=== PATIENT | female | born 1960 | race Caucasian/White ===

== ENCOUNTER 2018-10-05 10:06 | Emergency (ER) | payer OTHER ==
[~2018-10-05] VITALS: Ht 160 cm; Wt 60.8 kg
[2018-10-05 10:06] VITALS: BP_SYST 144
--- NOTE | 2018-10-05 10:06 | NUR ---
BROUGHT BACK TO BED #6 AND TRIAGED. REPORT GIVEN TO DEREK
--- NOTE | 2018-10-05 10:20 | NUR ---
pt reports walking into a pot hole and twisted her left ankle. She has sustained a prior fracture on the area before. A bump is visible on the left foot. PT reports that the site is tender to the touch. No other c/o at the moment.
[2018-10-05] MEDS ORDERED: IBUPROFEN 800 MG TABLET PO ONE (10:30)
--- NOTE | 2018-10-05 10:30 | NUR ---
ER at bedside examining patient.
--- NOTE | 2018-10-05 10:45 | NUR ---
x-ray at the bedside.
--- NOTE | 2018-10-05 12:15 | NUR ---
left foot splinted. +2 pedal pulse. Cap refil < 3. Crutches provided to the pt.
[2018-10-05 12:32] VITALS: BP_SYST 144
--- NOTE | 2018-10-05 12:35 | NUR ---
Patient given written and verbal discharge instructions and verbalizes understanding. ER MD discussed with patient the results and treatment provided. Patient in stable condition. ID arm band removed. IV catheter removed intact and dressing applied, no active bleeding. Rx of Motrin given. Patient educated on pain management and to follow up with PMD. Pain Scale 3/10. Opportunity for questions provided and answered. Medication side effect fact sheet provided.
== END 2018-10-05 12:32 | disposition home or self-care (01) ==
LOC: SED 10:06
DX: S92.352A Displaced fracture of fifth metatarsal bone, left foot, initial encounter for closed fracture (principal); W17.2XXA Fall into hole, initial encounter; Y93.89 Activity, other specified; Y92.89 Other specified places as the place of occurrence of the external cause; Y99.8 Other external cause status
CPT/HCPCS: 99283

== ENCOUNTER 2019-12-18 09:40 | Emergency (ER) | payer OTHER ==
[~2019-12-18] VITALS: Ht 160 cm; Wt 65.8 kg
[2019-12-18 09:40] VITALS: BP_SYST 158
[2019-12-18] MEDS ORDERED: KETOROLAC TROMETHAMINE 60 MG/2 ML VIAL IM ONE (10:15)
[2019-12-18 11:43] VITALS: BP_SYST 155
== END 2019-12-18 11:40 | disposition home or self-care (01) ==
LOC: SED 09:40
DX: S39.012A Strain of muscle, fascia and tendon of lower back, initial encounter (principal); S16.1XXA Strain of muscle, fascia and tendon at neck level, initial encounter; I10 Essential (primary) hypertension; V49.9XXA Car occupant (driver) (passenger) injured in unspecified traffic accident, initial encounter; Y93.89 Activity, other specified; Y92.413 State road as the place of occurrence of the external cause; Y99.8 Other external cause status
CPT/HCPCS: 71045; 72040; 72100; 96372; 99284; J1885

== ENCOUNTER 2020-04-29 18:31 | Emergency (ER) | payer OTHER ==
[~2020-04-29] VITALS: Ht 160 cm; Wt 61.2 kg
[2020-04-29 18:40] VITALS: BP_SYST 184
--- NOTE | 2020-04-29 18:40 | NUR ---
Patient to ER bed 07 to gown for evaluation. Side rails up.
--- NOTE | 2020-04-29 18:43 | NUR ---
Dr Vinson evaluating patient at bedside
--- NOTE | 2020-04-29 18:45 | NUR ---
Pt walked in to ER with c/o abdominal pain x3 days, denies n/v or fever at this time. V/S stable, no acute distress noted.
[2020-04-29 18:51] LABS: BASOPHILS % (AUTO) 0.5 % (0.0-2.0); EOSINOPHILS # (AUTO) 0.1 K/uL (0.0-0.4); EOSINOPHILS % (AUTO) 1.8 % (0.0-4.0); HEMOGLOBIN 14.1 g/dL (12.0-16.0); LYMPHOCYTES # (AUTO) 1.9 K/uL (1.0-5.5); LYMPHOCYTES % (AUTO) 31.4 % (20.5-51.5); MEAN CORPUSCULAR HEMOGLOBIN 31 pg (27-31); MEAN CORPUSCULAR HGB CONC 34 % (32-36); MEAN CORPUSCULAR VOLUME 91 fL (79.0-98.0); MONOCYTES # (AUTO) 0.6 K/uL (0.0-1.0); MONOCYTES % (AUTO) 10.2 % (1.7-9.3); NEUTROPHILS # (AUTO) 3.3 K/uL (1.8-7.7); NEUTROPHILS % (AUTO) 56.1 % (40.0-70.0); PLATELET COUNT (AUTO) 156 K/uL (130-430); RED CELL DISTRIBUTION WIDTH 12.8 % (9.0-15.0)
[2020-04-29] MEDS ORDERED: NACL 0.9% 1,000 ML IV ONE (19:00)
[2020-04-29] MEDS ORDERED: ONDANSETRON HCL 4 MG/2 ML VIAL IVP ONE (19:00)
[2020-04-29] MEDS ORDERED: MORPHINE 2 MG/ML INJ. SYRINGE IVP ONE (19:00)
--- NOTE | 2020-04-29 19:00 | NUR ---
# 20 gauge angiocath placed to RAC. Use of asceptic technique. Opsite placed over site. Blood return noted. Flushed with 10 cc of normal saline. No evidence of infiltration noted. Patient tolerated well.
[2020-04-29 19:05] LABS: ANION GAP 9 (5-15); CALCIUM 9.5 mg/dL (8.4-11.0); CHLORIDE 105 mmol/L (98-107); CREATININE 0.94 mg/dL (0.55-1.30); GLUCOSE 91 mg/dL (70-99); POTASSIUM 3.9 mmol/L (3.5-5.1); SODIUM SERUM 142 mmol/L (136-145); UREA NITROGEN, BLOOD 22 mg/dL (8-21)
[2020-04-29 19:06] LABS: GFR AFRICAN AMERICAN 78 mL/min (>90)
[2020-04-29 19:10] LABS: BILIRUBIN,URINE NEGATIVE (NEGATIVE); BLOOD, URINE NEGATIVE (NEGATIVE); COLOR,URINE YELLOW (YELLOW); GLUCOSE,URINE NEGATIVE (NEGATIVE); KETONES,URINE NEGATIVE (NEGATIVE); LEUKOCYTE ESTERASE ,URINE 1+ (NEGATIVE); NITRITE, URINE NEGATIVE (NEGATIVE); PROTEIN URINE NEGATIVE (NEGATIVE); UROBILINOGEN,URINE 0.2 (0.2-1.0)
[2020-04-29 19:11] LABS: CLARITY/URINE SLIGHTLY HAZY (CLEAR)
--- NOTE | 2020-04-29 19:11 | NUR ---
Care of patient endorsed to ANSHU Muniz. Pt currently resting in bed, no distress noted.
[2020-04-29 19:16] LABS: ALANINE AMINOTRANSFERASE 38 U/L (12-78); ALBUMIN 4.3 g/dL (3.4-4.8); ASPARTATE AMINOTRANSFERASE 31 U/L (10-37); LIPASE 188 U/L (73-393); TOTAL BILIRUBIN 0.2 mg/dL (0.0-1.0)
[2020-04-29 19:29] LABS: BACTERIA,URINE FEW /HPF (None Seen); MUCUS,URINE None Seen /LPF (None Seen); RBC,URINE NONE SEEN /HPF (0-3)
[2020-04-29 19:29] LABS: BILIRUBIN,DIRECT 0.1 mg/dL (0.0-0.3)
--- NOTE | 2020-04-29 20:10 | NUR ---
Pt taken to Radiology in stable condition
--- NOTE | 2020-04-29 20:30 | NUR ---
PT BACK FROM CT SCAN AWAITING RESULTS.
[2020-04-29 21:05] VITALS: BP_SYST 168
--- NOTE | 2020-04-29 21:05 | NUR ---
d Patient given written and verbal discharge instructions and verbalizes understanding. ER MD discussed with patient the results and treatment provided. Patient in stable condition. ID arm band removed. IV catheter removed intact and dressing applied, no active bleeding. Patient educated on pain management and to follow up with PMD. Pain Scale 0/10 Opportunity for questions provided and answered.
== END 2020-04-29 21:05 | disposition home or self-care (01) ==
LOC: SED 18:31
DX: K57.90 Diverticulosis of intestine, part unspecified, without perforation or abscess without bleeding (principal); R10.32 Left lower quadrant pain; N28.1 Cyst of kidney, acquired; I10 Essential (primary) hypertension
CPT/HCPCS: 36415; 74177; 76376; 80048; 80076; 81000; 83690; 83880; 84484; 85025; 87086; 93005; 96361; 96374; 96375; 99285; J2270; J2405; J7030; Q9967

== ENCOUNTER 2022-07-27 13:26 | Emergency (ER) | payer OTHER ==
[~2022-07-27] VITALS: Ht 160 cm; Wt 63.5 kg
[~2022-07-27 13:26] MED LIST: ACET-2634 PO; IBUP-1969 PO
[2022-07-27 13:42] VITALS: BP_SYST 158
[2022-07-27 14:05] LABS: BASOPHILS % (AUTO) 0.7 % (0.0-2.0); EOSINOPHILS # (AUTO) 0.1 K/uL (0.0-0.4); EOSINOPHILS % (AUTO) 1.7 % (0.0-4.0); HEMOGLOBIN 13.6 g/dL (12.0-16.0); LYMPHOCYTES # (AUTO) 1.4 K/uL (1.0-5.5); LYMPHOCYTES % (AUTO) 22.6 % (20.5-51.5); MEAN CORPUSCULAR HEMOGLOBIN 32 pg (27-31); MEAN CORPUSCULAR HGB CONC 35 % (32-36); MEAN CORPUSCULAR VOLUME 92 fL (79.0-98.0); MONOCYTES # (AUTO) 0.7 K/uL (0.0-1.0); MONOCYTES % (AUTO) 11.3 % (1.7-9.3); NEUTROPHILS # (AUTO) 3.8 K/uL (1.8-7.7); NEUTROPHILS % (AUTO) 63.7 % (40.0-70.0); PLATELET COUNT (AUTO) 188 K/uL (130-430); RED BLOOD CELL COUNT(AUTO) 4.25 MIL/uL (4.2-6.2); RED CELL DISTRIBUTION WIDTH 13.1 % (9.0-15.0)
[2022-07-27 14:22] LABS: ANION GAP 8 (5-15); CALCIUM 8.9 mg/dL (8.4-11.0); CHLORIDE 103 mmol/L (98-107); CREATININE 0.81 mg/dL (0.55-1.30); GFR AFRICAN AMERICAN 92 mL/min (>90); GLUCOSE 125 mg/dL (70-99); UREA NITROGEN, BLOOD 22 mg/dL (8-21)
[2022-07-27 14:28] LABS: ALANINE AMINOTRANSFERASE 30 U/L (12-78); ALBUMIN 4.1 g/dL (3.4-4.8); ASPARTATE AMINOTRANSFERASE 21 U/L (10-37); TOTAL BILIRUBIN 0.2 mg/dL (0.0-1.0)
[2022-07-27 14:29] LABS: C-REACTIVE PROTEIN QUANT < 0.2 mg/dL (0-0.5)
[2022-07-27 15:40] VITALS: BP_SYST 148
== END 2022-07-27 15:13 | disposition home or self-care (01) ==
LOC: SED 13:26
DX: R60.9 Edema, unspecified (principal); K21.9 Gastro-esophageal reflux disease without esophagitis; I10 Essential (primary) hypertension; Z79.899 Other long term (current) drug therapy
CPT/HCPCS: 36415; 73590-TC; 80053; 83880; 84484; 85025; 86140; 93971; 99284